=== PATIENT | male | born 1985 ===

== ENCOUNTER 2017-07-12 17:36 | Observation (INO) | payer OTHER ==
--- NOTE | 2017-07-12 18:47 | C.PDOC ---
History Of Present Illness 32yo male, presents to ED for evaluation of syncopal episodes which has been happening at time 3x per day and other times 1x per week for the past several years. PAtient states he had an episode last night and denies any changes to the presentation; patient states when the syncopal episode comes on, he becomes hot, pale, feels dizzy and lightheaded, and loses consciousness for 4-5 minutes and when he comes to, he has a headache after. Patient denies any head injury during the episodes and states they have been witnessed by his as well as his co-workers who deny any tongue bite or incontinence or seizure like activities. Patient states an episode occurred last night with similar pre- syncopal symptoms as before; patient was at [facility] getting off the bus when he felt the symptoms, sat down and "passed out" for 5 minutes and when he came to, EMS was on site. Patient was advised to come to the ER for evaluation if such symptom happened again. Patient reports today at work, he had another episode which prompted his visit. He offers no other medical complaints. Time Seen by Provider: 07/12/17 18:35 Chief Complaint (Nursing): Syncope History Per: Patient History/Exam Limitations: no limitations Onset/Duration Of Symptoms: Intermittent Episodes, Persistent Current Symptoms Are (Timing): Still Present Associated Symptoms Preceding Syncopal Episode: Lightheadedness Seizure Or Post-ictal Symptoms: None Fall Associated With With Symptoms: No Additional History Per: Patient Past Medical History Reviewed: Historical Data, Nursing Documentation, Vital Signs Vital Signs: Last Vital Signs Temp 98.2 F 07/13/17 00:39 Pulse 87 07/13/17 00:39 Resp 16 07/13/17 00:39 BP 119/71 07/13/17 00:39 Pulse Ox 96 07/13/17 00:39 - Medical History PMH: No Chronic Diseases Surgical History: No Surg Hx Family History: States: No Known Family Hx - Social History Hx Tobacco Use: Yes Hx Alcohol Use: Yes Hx Substance Use: No - Immunization History Hx Tetanus Toxoid Vaccination: No Hx Influenza Vaccination: No Hx Pneumococcal Vaccination: No Review Of Systems Except As Marked, All Systems Reviewed And Found Negative. Constitutional: Positive for: Sweats. Negative for: Fever, Chills Cardiovascular: Positive for: Light Headedness Neurological: Positive for: Headache, Dizziness, Other (syncopal episodes). Negative for: Seizures Physical Exam - Physical Exam Appears: Non-toxic, No Acute Distress Skin: Normal Color, Warm, Dry Head: Atraumatic, Normacephalic Eye(s): bilateral: Normal Inspection, PERRL, EOMI Ear(s): Bilateral: Normal Nose: Normal Oral Mucosa: Moist Neck: Normal ROM, Supple Chest: Symmetrical Cardiovascular: Rhythm Regular Respiratory: Normal Breath Sounds, No Wheezing Gastrointestinal/Abdominal: Normal Exam, Soft, No Tenderness Back: Normal Inspection Extremity: Normal ROM, No Pedal Edema, No Deformity, No Swelling Neurological/Psych: Oriented x3, Normal Speech, Normal Cognition, Normal Motor, Normal Sensation ED Course And Treatment - Laboratory Results Result Diagrams: 07/12/17 20:27 07/12/17 20:27 Lab Interpretation: No Acute Changes ECG: Interpreted By Me ECG Rhythm: Sinus Rhythm ECG Interpretation: No Acute Changes O2 Sat by Pulse Oximetry: 97 (RA) Pulse Ox Interpretation: Normal - CT Scan/US CT Head Other Rad Studies (CT/US): Read By Radiologist, Radiology Report Reviewed CT/US Interpretation: Impression: Striated bandlike hyperdensity in the cerebellar vermis, completely symmetric, the appearance fo which favors early faint calcification over hemorrhage, a finding that is associated with lead toxicity. - Physician Consult Information Time Consulting Physician Contacted: 01:05 Physician Contacted: Maikol Bentley Outcome Of Conversation: Suggest patient be admitted for syncope evaluation and monitoring. Medical Decision Making Medical Decision Making: Plan: -- CMP -- CBC -- CT Head w/o contrast Disposition - Disposition Disposition: HOSPITALIZED Disposition Time: 01:05 Condition: STABLE - POA Present On Arrival: None - Clinical Impression Clinical Impression: Syncope - Scribe Statement The provider has reviewed the documentation as recorded by the Scribe (Danitza Thakur) Provider Attestation: All medical record entries made by the Scribe were at my direction and personally dictated by me. I have reviewed the chart and agree that the record accurately reflects my personal performance of the history, physical exam, medical decision making, and the department course for this patient. I have also personally directed, reviewed, and agree with the discharge instructions and disposition.
[2017-07-12 20:31] LABS: BASO # 0.1 K/uL (0.0-0.2); BASO % 0.6 % (0.0-2.0); EOS # 0.1 K/uL (0.0-0.7); EOS % 0.6 % (0.0-4.0); HEMOGLOBIN 15.5 g/dL (12.0-18.0); LYMPH % 21.6 % (20.0-40.0); MEAN CELL VOLUME 93.8 fL (80.0-94.0); MEAN CORPUSCULAR HEMOGLOBIN 32.1 pg (27.0-31.0); MEAN CORPUSCULAR HGB CONC 34.2 g/dL (33.0-37.0); MONO # 0.8 K/uL (0.0-0.8); MONO % 5.7 % (0.0-10.0); NEUT # 9.9 K/uL (1.8-7.0); NEUT % 71.5 % (50.0-75.0); RBC 4.83 Mil/uL (4.40-5.90); RED CELL DISTRIBUTION WIDTH 13.4 % (11.5-14.5); WHITE BLOOD COUNT 13.8 K/uL (4.8-10.8)
[2017-07-12 20:43] LABS: ALB/GLOB RATIO 1.3 (1.0-2.1); ALBUMIN 4.4 g/dL (3.5-5.0); ALT/SGPT 36 U/L (21-72); AST/SGOT 27 U/L (17-59); BLOOD UREA NITROGEN 12 mg/dL (9-20); GFR AFRICAN-AMERICAN > 60; GFR NON-AFRICAN AMERICAN > 60
[2017-07-12 20:47] LABS: URINE BILIRUBIN NEGATIVE (NEGATIVE); URINE BLOOD NEGATIVE (NEGATIVE); URINE CLARITY Clear (Clear); URINE COLOR Yellow (YELLOW); URINE GLUCOSE (UA) NORMAL (Normal); URINE LEUKOCYTE ESTERASE NEG Leu/uL (Negative); URINE PROTEIN NEGATIVE (NEGATIVE)
[2017-07-12 21:13] LABS: BARBITURATES, UR NEGATIVE (NEGATIVE); BENZODIAZEPINES, UR NEGATIVE (NEGATIVE); OPIATES, UR NEGATIVE (NEGATIVE); PHENCYCLIDINE, UR NEGATIVE (NEGATIVE)
[2017-07-13] MEDS ORDERED: Potassium Chloride 20 mEq ER Tab PO ONE (03:04)
--- NOTE | 2017-07-13 03:09 | CP.PCM.HP ---
<Liliana Carrington - Last Filed: 07/13/17 06:09> History of Present Illness - History of Present Illness History of Present Illness: 32 year old male with no reported past medical history presents to the ED after having multiple syncope episodes. Patient had a syncope episode last night while resting at home. Seconds prior to lose consciousness, patient experienced dizziness, cold sweats, chill and blurred vision. Patient was told that he was unconscious for about 5 minutes. There were no seizure like movement , urinary or fecal incontinence, however patient does complaint of a headache after regained consciousness. Patient had another syncope episode this morning while waiting at a bus stop in [facility]. EMS arrived and evaluated the patient then recommended him to go to the ED which he declined at the time because he needs to go to work. Patient reports he first experience these episodes when he was a teenager, but was never evaluated by anyone. Patient denies having fever, shortness of breath, chest pain, nausea, vomiting, diarrhea , or urinary symptoms. PMD: none PMHx: denies PSHx: denies Allergy: NKDA Social Hx: Smokes 1 pack of cigarettes daily, 1 joint of marijuana daily, and social alcohol consumption Family Hx: maternal aunt with brain tumor, sister with lupus Home meds: none Present on Admission - Present on Admission Any Indicators Present on Admission: No Review of Systems - Constitutional Constitutional: As Per HPI, Chills, Headache. absent: Anorexia, Fever - EENT Eyes: As Per HPI, Blurred Vision. absent: Blind Spots, Decreased Night Vision, Discharge Ears: As Per HPI. absent: Decreased Hearing, Disequilibrium Nose/Mouth/Throat: As Per HPI. absent: Epistaxis, Nasal Congestion, Nasal Obstruction - Cardiovascular Cardiovascular: As Per HPI. absent: Chest Pain, Chest Pain with Activity, Leg Edema - Respiratory Respiratory: As Per HPI. absent: Cough, Dyspnea, Wheezing - Gastrointestinal Gastrointestinal: As Per HPI. absent: Abdominal Pain, Diarrhea, Nausea, Vomiting - Genitourinary Genitourinary: As Per HPI. absent: Dysuria, Urinary Incontinence - Reproductive: Male Reproductive:Male: As Per HPI - Musculoskeletal Musculoskeletal: As Per HPI. absent: Atrophy, Back Pain, Deformity - Integumentary Integumentary: As Per HPI. absent: Acne - Neurological Neurological: As Per HPI, Headaches, Syncope. absent: Tremor - Psychiatric Psychiatric: As Per HPI. absent: Anxiety, Depression - Endocrine Endocrine: As Per HPI. absent: Change in Body Appearance - Hematologic/Lymphatic Hematologic: As Per HPI Past Patient History - Past Social History Smoking Status: Light Smoker < 10 Cigarettes Daily - PSYCHIATRIC Hx Substance Use: No - SURGICAL HISTORY Hx Surgeries: No - ANESTHESIA Hx Anesthesia: No Meds Allergies/Adverse Reactions: Allergies Allergy/AdvReac Type Severity Reaction Status Date / Time No Known Allergies Allergy Verified 07/12/17 18:07 Physical Exam - Constitutional Appears: Well, Non-toxic, No Acute Distress - Head Exam Head Exam: ATRAUMATIC, NORMOCEPHALIC - Eye Exam Eye Exam: EOMI, Normal appearance Pupil Exam: PERRL - ENT Exam ENT Exam: Mucous Membranes Moist - Neck Exam Neck exam: Positive for: Normal Inspection - Respiratory Exam Respiratory Exam: Clear to Auscultation Bilateral, NORMAL BREATHING PATTERN. absent: Wheezes, Respiratory Distress - Cardiovascular Exam Cardiovascular Exam: REGULAR RHYTHM, +S1, +S2. absent: Diastolic murmur, Systolic Murmur - GI/Abdominal Exam GI & Abdominal Exam: Normal Bowel Sounds, Soft. absent: Tenderness - Extremities Exam Extremities exam: Positive for: normal inspection. Negative for: tenderness - Neurological Exam Neurological exam: Alert, Oriented x3 - Psychiatric Exam Psychiatric exam: Normal Affect, Normal Mood - Skin Skin Exam: Normal Color, Warm Results - Vital Signs Recent Vital Signs: Last Vital Signs Temp 97.9 F 07/13/17 02:28 Pulse 89 07/13/17 02:28 Resp 16 07/13/17 02:28 BP 130/74 07/13/17 02:28 Pulse Ox 99 07/13/17 02:28 - Labs Result Diagrams: 07/12/17 20:27 07/12/17 20:27 Labs: Laboratory Results - last 24 hr 07/12/17 07/12/17 07/12/17 18:11 20:27 20:27 WBC 13.8 H RBC 4.83 Hgb 15.5 Hct 45.3 MCV 93.8 MCH 32.1 H MCHC 34.2 RDW 13.4 Plt Count 350 MPV 9.0 Neut % (Auto) 71.5 Lymph % (Auto) 21.6 [place] % (Auto) 5.7 Eos % (Auto) 0.6 Baso % (Auto) 0.6 Neut # (Auto) 9.9 H Lymph # (Auto) 3.0 [place] # (Auto) 0.8 Eos # (Auto) 0.1 Baso # (Auto) 0.1 Sodium 144 Potassium 3.5 L Chloride 102 Carbon Dioxide 24 Anion Gap 22 H BUN 12 Creatinine 0.9 Est GFR ( Amer) > 60 Est GFR (Non-Af Amer) > 60 POC Glucose (mg/dL) 97 Random Glucose 95 Calcium 9.0 Total Bilirubin 0.5 AST 27 ALT 36 Alkaline Phosphatase 60 Total Protein 7.7 Albumin 4.4 Globulin 3.3 Albumin/Globulin Ratio 1.3 Urine Color Urine Clarity Urine pH Ur Specific [place] Urine Protein Urine Glucose (UA) Urine Ketones Urine Blood Urine Nitrate Urine Bilirubin Urine Urobilinogen Ur Leukocyte Esterase Urine WBC (Auto) Urine RBC (Auto) Urine Opiates Screen Urine Methadone Screen Ur Barbiturates Screen Ur Phencyclidine Scrn Ur Amphetamines Screen U Benzodiazepines Scrn U Oth Cocaine Metabols U Cannabinoids Screen 07/12/17 07/12/17 20:38 20:38 WBC RBC Hgb Hct MCV MCH MCHC RDW Plt Count MPV Neut % (Auto) Lymph % (Auto) [place] % (Auto) Eos % (Auto) Baso % (Auto) Neut # (Auto) Lymph # (Auto) [place] # (Auto) Eos # (Auto) Baso # (Auto) Sodium Potassium Chloride Carbon Dioxide Anion Gap BUN Creatinine Est GFR ( Amer) Est GFR (Non-Af Amer) POC Glucose (mg/dL) Random Glucose Calcium Total Bilirubin AST ALT Alkaline Phosphatase Total Protein Albumin Globulin Albumin/Globulin Ratio Urine Color Yellow Urine Clarity Clear Urine pH 5.0 Ur Specific [place] 1.020 Urine Protein Negative Urine Glucose (UA) Normal Urine Ketones Negative Urine Blood Negative Urine Nitrate Negative Urine Bilirubin Negative Urine Urobilinogen 2.0 Ur Leukocyte Esterase Neg Urine WBC (Auto) < 1 Urine RBC (Auto) < 1 Urine Opiates Screen Negative Urine Methadone Screen Negative Ur Barbiturates Screen Negative Ur Phencyclidine Scrn Negative Ur Amphetamines Screen Negative U Benzodiazepines Scrn Negative U Oth Cocaine Metabols Negative U Cannabinoids Screen Positive H Assessment & Plan - Assessment and Plan (Free Text) Assessment: Syncope -Carotid body hypersensitivity vs seizure -Orthostatic vitals -Follow up echo, head CT and EKG -Fall precaution -Cardiology consult Electrolyte imbalance -Potassium 3.5 -Supplement as needed -Monitor AM labs Polysubstance abuse (marijuana, tobacco, alcohol) -UDS positive for cannabinoids -Nicoderm patch -Cessation was strongly advised Prophylactic measures -Protonix -Lovenox <Maikol Bentley P - Last Filed: 07/13/17 07:47> Results - Vital Signs Recent Vital Signs: Last Vital Signs Temp 98.3 F 07/13/17 02:55 Pulse 101 H 07/13/17 02:55 Resp 20 07/13/17 02:55 BP 126/82 07/13/17 02:55 Pulse Ox 98 07/13/17 02:55 - Labs Result Diagrams: 07/12/17 20:27 07/12/17 20:27 Labs: Laboratory Results - last 24 hr 07/12/17 07/12/17 07/12/17 18:11 20:27 20:27 WBC 13.8 H RBC 4.83 Hgb 15.5 Hct 45.3 MCV 93.8 MCH 32.1 H MCHC 34.2 RDW 13.4 Plt Count 350 MPV 9.0 Neut % (Auto) 71.5 Lymph % (Auto) 21.6 [place] % (Auto) 5.7 Eos % (Auto) 0.6 Baso % (Auto) 0.6 Neut # (Auto) 9.9 H Lymph # (Auto) 3.0 [place] # (Auto) 0.8 Eos # (Auto) 0.1 Baso # (Auto) 0.1 Sodium 144 Potassium 3.5 L Chloride 102 Carbon Dioxide 24 Anion Gap 22 H BUN 12 Creatinine 0.9 Est GFR ( Amer) > 60 Est GFR (Non-Af Amer) > 60 POC Glucose (mg/dL) 97 Random Glucose 95 Calcium 9.0 Total Bilirubin 0.5 AST 27 ALT 36 Alkaline Phosphatase 60 Total Protein 7.7 Albumin 4.4 Globulin 3.3 Albumin/Globulin Ratio 1.3 Urine Color Urine Clarity Urine pH Ur Specific [place] Urine Protein Urine Glucose (UA) Urine Ketones Urine Blood Urine Nitrate Urine Bilirubin Urine Urobilinogen Ur Leukocyte Esterase Urine WBC (Auto) Urine RBC (Auto) Urine Opiates Screen Urine Methadone Screen Ur Barbiturates Screen Ur Phencyclidine Scrn Ur Amphetamines Screen U Benzodiazepines Scrn U Oth Cocaine Metabols U Cannabinoids Screen 07/12/17 07/12/17 20:38 20:38 WBC RBC Hgb Hct MCV MCH MCHC RDW Plt Count MPV Neut % (Auto) Lymph % (Auto) [place] % (Auto) Eos % (Auto) Baso % (Auto) Neut # (Auto) Lymph # (Auto) [place] # (Auto) Eos # (Auto) Baso # (Auto) Sodium Potassium Chloride Carbon Dioxide Anion Gap BUN Creatinine Est GFR ( Amer) Est GFR (Non-Af Amer) POC Glucose (mg/dL) Random Glucose Calcium Total Bilirubin AST ALT Alkaline Phosphatase Total Protein Albumin Globulin Albumin/Globulin Ratio Urine Color Yellow Urine Clarity Clear Urine pH 5.0 Ur Specific [place] 1.020 Urine Protein Negative Urine Glucose (UA) Normal Urine Ketones Negative Urine Blood Negative Urine Nitrate Negative Urine Bilirubin Negative Urine Urobilinogen 2.0 Ur Leukocyte Esterase Neg Urine WBC (Auto) < 1 Urine RBC (Auto) < 1 Urine Opiates Screen Negative Urine Methadone Screen Negative Ur Barbiturates Screen Negative Ur Phencyclidine Scrn Negative Ur Amphetamines Screen Negative U Benzodiazepines Scrn Negative U Oth Cocaine Metabols Negative U Cannabinoids Screen Positive H Attending/Attestation - Attestation I have personally seen and examined this patient.: Yes I have fully participated in the care of the patient.: Yes I have reviewed all pertinent clinical information: Yes Notes (Text): Clinically cardiogenic syncope, most likely bradycardia patient starts to feel before the event and sits down most of the time to prevent fall, hence no injuries. Plan Echo Tele monitor Cardiology consult May need tilt table test, holter monitor in case tele monitor doesn't show the rhythm changes Avoid joann blocking agents Tobacco and marijuana abuse, he was counselled GI/DVT prophylaxis.
[2017-07-13] MEDS ORDERED: Pneumococcal 23-Valent Vaccine IM ONE (03:45)
[2017-07-13 07:42] LABS: BASO # 0.1 K/uL (0.0-0.2); BASO % 0.7 % (0.0-2.0); EOS # 0.1 K/uL (0.0-0.7); EOS % 0.7 % (0.0-4.0); HEMOGLOBIN 15.3 g/dL (12.0-18.0); LYMPH # 2.3 K/uL (1.0-4.3); LYMPH % 14.6 % (20.0-40.0); MEAN CELL VOLUME 93.6 fL (80.0-94.0); MEAN CORPUSCULAR HEMOGLOBIN 32.6 pg (27.0-31.0); MEAN CORPUSCULAR HGB CONC 34.8 g/dL (33.0-37.0); MEAN PLATELET VOLUME 8.6 fL (7.2-11.7); MONO # 0.8 K/uL (0.0-0.8); NEUT # 12.2 K/uL (1.8-7.0); RBC 4.7 Mil/uL (4.40-5.90); RED CELL DISTRIBUTION WIDTH 13.1 % (11.5-14.5); WHITE BLOOD COUNT 15.5 K/uL (4.8-10.8)
[2017-07-13 08:02] LABS: ALB/GLOB RATIO 1.2 (1.0-2.1); ALBUMIN 3.8 g/dL (3.5-5.0); ALT/SGPT 30 U/L (21-72); AST/SGOT 25 U/L (17-59); BLOOD UREA NITROGEN 10 mg/dL (9-20); CALCIUM 8.8 mg/dl (8.6-10.4); GFR AFRICAN-AMERICAN > 60; GFR NON-AFRICAN AMERICAN > 60
--- NOTE | 2017-07-13 08:14 | CT ---
PROCEDURE: CT HEAD WITHOUT CONTRAST. HISTORY: syncope COMPARISON: None available. TECHNIQUE: Axial computed tomography images were obtained through the head/brain without intravenous contrast. Radiation dose: Total exam DLP = 771 mGy-cm. This CT exam was performed using one or more of the following dose reduction techniques: Automated exposure control, adjustment of the mA and/or kV according to patient size, and/or use of iterative reconstruction technique. FINDINGS: HEMORRHAGE: Symmetric band like areas of faint increased density along the cerebellar vermis. Although the hyperattenuation raises the possibility of hemorrhage, it is completely symmetric which in combination with the striated bandlike pattern which would be atypical for acute hemorrhage. The appearance is more suggestive of early faint calcification. The location within the vermis is a finding that may be associated with lead toxicity. Clinical correlation. BRAIN: See above. VENTRICLES: Unremarkable. No hydrocephalus. CALVARIUM: Unremarkable. PARANASAL SINUSES: Unremarkable as visualized. No significant inflammatory changes. MASTOID AIR CELLS: Unremarkable as visualized. No inflammatory changes. OTHER FINDINGS: None. IMPRESSION: Symmetric band like areas of faint increased density along the cerebellar vermis. Although the hyperattenuation raises the possibility of hemorrhage, it is completely symmetric which in combination with the striated bandlike pattern which would be atypical for acute hemorrhage. The appearance is more suggestive of early faint calcification. The location within the vermis is a finding that may be associated with lead toxicity. Clinical correlation. These findings were preliminarily reported at 12:30 a.m. on 07/13/[address] Adelita Lancaster from [email or web address].
[2017-07-13] MEDS ORDERED: Enoxaparin 40 mg Syringe SC SCH (10:00)
[2017-07-13] MEDS ORDERED: Pantoprazole 40 mg EC Tab PO SCH (10:00)
--- NOTE | 2017-07-13 10:05 | CP.PCM.PN ---
<Luis Malcolm - Last Filed: 07/13/17 17:12> Subjective - Date & Time of Evaluation Date of Evaluation: 07/13/17 Time of Evaluation: 10:01 - Subjective Subjective: Patient seen and examined at bedside He has no complaints at this time. States he has multiple bumps on his back that have been slowly enlarging since childhood. Only cause him pain when he bumps them. States he has been smoking marijuana daily since he was 13 years old Does not tolerate nicotine patch Objective - Vital Signs/Intake and Output Vital Signs (last 24 hours): Temp Pulse Resp BP Pulse Ox 98.2 F 75 20 117/76 97 07/13/17 08:02 07/13/17 08:02 07/13/17 08:02 07/13/17 08:02 07/13/17 08:02 Intake and Output: 07/13/17 07/13/17 06:59 18:59 Intake Total 10 Balance 10 - Medications Medications: Current Medications Nicotine (Nicoderm Cq) 1 patch TD DAILY JACE - Labs Labs: 07/13/17 07:35 07/13/17 07:35 - Constitutional Appears: Well, Non-toxic, No Acute Distress - Head Exam Head Exam: ATRAUMATIC, NORMAL INSPECTION, NORMOCEPHALIC - Eye Exam Eye Exam: EOMI, Normal appearance, PERRL. absent: Conjunctival injection, Nystagmus, Periorbital swelling, Periorbital tenderness, Scleral icterus Pupil Exam: NORMAL ACCOMODATION, PERRL. absent: Fixed, Irregular, Miosis, Mydriatic, Unequal - ENT Exam ENT Exam: Mucous Membranes Moist, Normal Exam. absent: Mucous Membranes Dry - Neck Exam Neck Exam: Full ROM, Normal Inspection. absent: Lymphadenopathy, Meningismus, Tenderness, Thyromegaly - Respiratory Exam Respiratory Exam: Clear to Ausculation Bilateral, NORMAL BREATHING PATTERN. absent: Accessory Muscle Use, Chest Wall Tenderness, Decreased Breath Sounds, Prolonged Expiratory Phase, Rales, Rhonchi, Wheezes, Respiratory Distress, Stridor - Cardiovascular Exam Cardiovascular Exam: REGULAR RHYTHM, +S1, +S2. absent: Bradycardia, Tachycardia Additional comments: every 4th beat auscultated extra beat - GI/Abdominal Exam GI & Abdominal Exam: Soft, Normal Bowel Sounds. absent: Bruit, Distended, Firm , Guarding, Rigid, Tenderness, Mass, Organomegaly, Pulsatile Mass, Rebound - Extremities Exam Extremities Exam: absent: Joint Swelling, Tenderness - Back Exam Back Exam: absent: CVA tenderness (L), CVA tenderness (R), Full ROM, rash noted , tenderness Additional comments: patient has multiple round mobile masses mostly like representing lipoma, Non tender. No evidence of overlying cellulitis - Neurological Exam Neurological Exam: Alert, Awake, CN II-XII Intact, Normal Gait, Oriented x3, Reflexes Normal Neuro motor strength exam: Left Upper Extremity: 5, Right Upper Extremity: 5, Left Lower Extremity: 5, Right Lower Extremity: 5 - Psychiatric Exam Psychiatric exam: Normal Affect, Normal Mood - Skin Skin Exam: Dry, Intact, Normal Color, Warm Assessment and Plan (1) Syncope Assessment & Plan: Neuro (Valentino) - follow up reccs Cards ([facility]) - Tilt table, lexiscan and loop recorder on monday Echo: Normal EF, No valvular abnormalities Carotid Doppler: No significant stenosis RPR cortisol AM trops folate B12 MRI Status: Acute (2) Marijuana abuse Assessment & Plan: counselled on smoking cessation Status: Acute (3) Obesity (BMI 30.0-34.9) Assessment & Plan: lipid panel A1C Rate Clerk referral HHD Status: Acute (4) Tobacco abuse Assessment & Plan: Smoking cessation counselling Status: Acute (5) Prophylactic measure Assessment & Plan: scd VTE not indicated GI ppx not indicated Status: Acute <Bobby Dunne - Last Filed: 07/13/17 19:39> Objective - Vital Signs/Intake and Output Vital Signs (last 24 hours): Temp Pulse Resp BP Pulse Ox 98.1 F 75 18 117/71 97 07/13/17 16:00 07/13/17 16:05 07/13/17 16:00 07/13/17 16:00 07/13/17 16:05 - Medications Medications: Current Medications Nicotine (Nicoderm Cq) 1 patch TD DAILY JACE Last Admin: 07/13/17 10:26 Dose: Not Given - Labs Labs: 07/13/17 07:35 07/13/17 07:35 Attending/Attestation - Attestation I have personally seen and examined this patient.: Yes I have fully participated in the care of the patient.: Yes I have reviewed all pertinent clinical information, including history, physical exam and plan: Yes Notes (Text): 07/13/17 19:39 Patient was seen and examined together with Resident Dr. Luis Cox. Exam, assessment and plan were gone over with the resident. Bobby Dunne D.O.
--- NOTE | 2017-07-13 12:49 | CARD ---
APPROVED REPORT EKG Measurement Heart [id number] VT [id number] [id number] <Conclusion> Normal sinus rhythm Normal ECG
--- NOTE | 2017-07-13 14:01 | RAD ---
Chest x-ray single frontal view History: Syncope. Comparison: 07/13/2017 Findings Mild venous congestion. Bilateral hilar prominence. Heart size within normal limits. Impression: Mild venous congestion.
--- NOTE | 2017-07-13 14:59 | VASCLAB ---
PROCEDURE: HISTORY: syncope COMPARISON: None available. TECHNIQUE: Grayscale and duplex Doppler evaluation of the cervical carotid and vertebral arteries were performed. The common carotid, carotid bifurcations and cervical Internal Carotid Artery (ICA) and proximal External Carotid Artery (ECA) were evaluated. The vertebral arteries were evaluated for gross patency and flow direction. Report prepared by Jw Gutierrez, BS, RVT FINDINGS: RIGHT CAROTID ARTERIES: 1. Common Carotid Artery: No significant focal plaque formation of the right common carotid artery. Maximum Peak Systolic velocity: 93 cm/sec: End-diastolic velocity 25 cm/sec. 2. Carotid Bifurcation: plaque formation. Maximum Peak Systolic velocity: 82 cm/sec: End-diastolic velocity 24 cm/sec. 3. Internal Carotid Artery: Plaque description: 3.1. Proximal Segment: Peak systolic velocity 61 cm/sec: End-diastolic velocity 26 cm/sec - % stenosis 0-15% 3.2. Middle Segment: Peak systolic velocity 56 cm/sec: End-diastolic velocity 29 cm/sec - % stenosis 0-15% 3.3. Distal Segment: Peak systolic velocity 56 cm/sec: End-diastolic velocity 26 cm/sec - % stenosis 0-15% 4. External Carotid Artery: No significant focal plaque formation. Peak systolic velocity 88 cm/sec 5. ICA/CCA Ratio: 0.9 LEFT CAROTID ARTERIES: 1. Common Carotid Artery: No significant focal plaque formation of the left common carotid artery. Maximum Peak Systolic velocity: 85 cm/sec: End-diastolic velocity 21 cm/sec. 2. Carotid Bifurcation: plaque formation. Maximum Peak Systolic velocity: 76 cm/sec: End-diastolic velocity 19 cm/sec. 3. Internal Carotid Artery: Plaque description: 3.1. Proximal Segment: Peak systolic velocity 52 cm/sec: End-diastolic velocity 23 cm/sec - % stenosis 0-15% 3.2. Middle Segment: Peak systolic velocity 64 cm/sec: End-diastolic velocity 21 cm/sec - % stenosis 0-15% 3.3. Distal Segment: Peak systolic velocity 43 cm/sec: End-diastolic velocity 21 cm/sec - % stenosis 0-15% 4. External Carotid Artery: No significant focal plaque formation. Peak systolic velocity 100 cm/sec 5. ICA/CCA Ratio: 0.9 VERTEBRAL ARTERIES: 1. Right Vertebral Artery: The right vertebral artery flow direction is antegrade. 2. Left Vertebral Artery: The left vertebral artery flow direction is antegrade. OTHER FINDINGS: 1. Right Brachial Blood pressure: 126 mmHg. 2. Left Brachial Blood pressure: 118 mmHg. IMPRESSION: RIGHT: Duplex scan does not suggest hemodynamically significant stenosis of the right extracranial carotid arteries. LEFT: Duplex scan does not suggest hemodynamically significant stenosis of the left extracranial carotid arteries.
--- NOTE | 2017-07-13 15:10 | CARD ---
APPROVED REPORT EXAM: Two-dimensional and M-mode echocardiogram with Doppler and color Doppler. Other Information Quality : GoodRhythm : INDICATION Syncope 2D DIMENSIONS IVSd0.8 (0.7-1.1cm)LVDd5.7 (3.9-5.9cm) PWd0.8 (0.7-1.1cm)LVDs3.7 (2.5-4.0cm) FS (%) 35.5 %LVEF (%)64.3 (>50%) M-Mode DIMENSIONS Left Atrium (MM)3.12 (2.5-4.0cm)Aortic Root3.67 (2.2-3.7cm) Aortic Cusp Exc.2.14 (1.5-2.0cm) Mitral Valve MV E Awxmbixg19.4cm/sMV A Ydgccyed99.4cm/sE/A ratio1.8 TDI E/Lateral E'0.0E/Medial E'0.0 <Conclusion> normal size la,lv & ra rv. normal lv wall motion,thickness,systolic & diastolic function with lvef of 55-60%. normal aortic,mitral,tv & pv. mild pi. no pericardial effusion. normal size aortic root.
--- NOTE | 2017-07-13 23:17 | CP.PCM.CON ---
History of Present Illness - History of Present Illness History of Present Illness: 32 yr old right handed male, with no pmh presents with multiple spells of syncope, resting at home, and preceded by dizziness, diaphoresis, followed by loc. as per chart: Patient had another syncope episode this morning while waiting at a bus stop in [facility]. EMS arrived and evaluated the patient then recommended him to go to the ED which he declined at the time because he needs to go to work. Denies chest pain, headache, weakness or aphasia. PMD: none PMHx: denies PSHx: denies Allergy: NKDA Social Hx: Smokes 1 pack of cigarettes daily, 1 joint of marijuana daily, and social alcohol consumption Family Hx: maternal aunt with brain tumor, sister with lupus Home meds: none Past Patient History - Past Social History Smoking Status: Light Smoker < 10 Cigarettes Daily - PSYCHIATRIC Hx Substance Use: No - SURGICAL HISTORY Hx Surgeries: No - ANESTHESIA Hx Anesthesia: No Meds Allergies/Adverse Reactions: Allergies Allergy/AdvReac Type Severity Reaction Status Date / Time No Known Allergies Allergy Verified 07/12/17 18:07 - Medications Medications: Current Medications Nicotine (Nicoderm Cq) 1 patch TD DAILY JACE Last Admin: 07/13/17 10:26 Dose: Not Given Results - Vital Signs Recent Vital Signs: Last Vital Signs Temp 98.1 F 07/13/17 16:00 Pulse 75 07/13/17 16:05 Resp 18 07/13/17 16:00 BP 117/71 07/13/17 16:00 Pulse Ox 97 07/13/17 20:41 - Labs Result Diagrams: 07/13/17 07:35 07/13/17 07:35 Labs: Laboratory Results - last 24 hr 07/13/17 07/13/17 07/13/17 07:35 07:35 11:41 WBC 15.5 H RBC 4.70 Hgb 15.3 Hct 44.0 MCV 93.6 MCH 32.6 H MCHC 34.8 RDW 13.1 Plt Count 298 MPV 8.6 Neut % (Auto) 79.0 H Lymph % (Auto) 14.6 L Howard % (Auto) 5.0 Eos % (Auto) 0.7 Baso % (Auto) 0.7 Neut # (Auto) 12.2 H Lymph # (Auto) 2.3 Howard # (Auto) 0.8 Eos # (Auto) 0.1 Baso # (Auto) 0.1 Sodium 141 Potassium 3.9 Chloride 103 Carbon Dioxide 25 Anion Gap 16 BUN 10 Creatinine 0.8 Est GFR ( Amer) > 60 Est GFR (Non-Af Amer) > 60 Random Glucose 95 Calcium 8.8 Phosphorus 3.2 Magnesium 2.1 Total Bilirubin 0.9 AST 25 ALT 30 Alkaline Phosphatase 61 Troponin I < 0.0120 Total Protein 7.0 Albumin 3.8 Globulin 3.3 Albumin/Globulin Ratio 1.2 Free T4 TSH 3rd Generation 1.08 Alcohol, Quantitative < 10 RPR 07/13/17 07/13/17 07/13/17 11:41 11:41 16:42 WBC RBC Hgb Hct MCV MCH MCHC RDW Plt Count MPV Neut % (Auto) Lymph % (Auto) Howard % (Auto) Eos % (Auto) Baso % (Auto) Neut # (Auto) Lymph # (Auto) Howard # (Auto) Eos # (Auto) Baso # (Auto) Sodium Potassium Chloride Carbon Dioxide Anion Gap BUN Creatinine Est GFR ( Amer) Est GFR (Non-Af Amer) Random Glucose Calcium Phosphorus Magnesium Total Bilirubin AST ALT Alkaline Phosphatase Troponin I < 0.0120 Total Protein Albumin Globulin Albumin/Globulin Ratio Free T4 1.03 TSH 3rd Generation Alcohol, Quantitative RPR Nonreactive 07/13/17 21:56 WBC RBC Hgb Hct MCV MCH MCHC RDW Plt Count MPV Neut % (Auto) Lymph % (Auto) Howard % (Auto) Eos % (Auto) Baso % (Auto) Neut # (Auto) Lymph # (Auto) Howard # (Auto) Eos # (Auto) Baso # (Auto) Sodium Potassium Chloride Carbon Dioxide Anion Gap BUN Creatinine Est GFR ( Amer) Est GFR (Non-Af Amer) Random Glucose Calcium Phosphorus Magnesium Total Bilirubin AST ALT Alkaline Phosphatase Troponin I < 0.0120 Total Protein Albumin Globulin Albumin/Globulin Ratio Free T4 TSH 3rd Generation Alcohol, Quantitative RPR Assessment & Plan - Assessment and Plan (Free Text) Assessment: 32 yr old male with syncopal spells that are most likely cardiogenic in nature , with normal neurological exam. PLan; 1. MRI brain 2. If normal, would continue with holter monitor 3. Monitor blood pressure fluctuations. 4. Telemetry.
[2017-07-14 00:20] VITALS: RESP 20; TEMP 97.8
[2017-07-14 03:39] VITALS: PULSE 64
--- NOTE | 2017-07-14 07:01 | CP.PCM.PN ---
Subjective - Date & Time of Evaluation Date of Evaluation: 07/14/17 Time of Evaluation: 06:58 - Subjective Subjective: Patient seen and examined at bedside. No complainants at this time no episodes of dizziness, weakness, chest pain or palpitations. No blurry vision Tolerating diet. Informed patient of plan for tilt table, loop recorder and lexiscan. Patient agrees with plan. Objective - Vital Signs/Intake and Output Vital Signs (last 24 hours): Temp Pulse Resp BP Pulse Ox 97.8 F 64 20 95/54 L 98 07/13/17 23:10 07/13/17 23:30 07/13/17 23:10 07/14/17 04:00 07/13/17 23:10 - Medications Medications: Current Medications Nicotine (Nicoderm Cq) 1 patch TD DAILY JACE Last Admin: 07/13/17 10:26 Dose: Not Given - Labs Labs: 07/13/17 07:35 07/13/17 07:35 - Constitutional Appears: Well - Neck Exam Neck Exam: Lymphadenopathy - Cardiovascular Exam Cardiovascular Exam: Murmur - Additional Findings Additional findings: - Constitutional Appears: Well, Non-toxic, No Acute Distress - Head Exam Head Exam: ATRAUMATIC, NORMAL INSPECTION, NORMOCEPHALIC - Eye Exam Eye Exam: EOMI, Normal appearance, PERRL. absent: Conjunctival injection, Nystagmus, Periorbital swelling, Periorbital tenderness, Scleral icterus Pupil Exam: NORMAL ACCOMODATION, PERRL. absent: Fixed, Irregular, Miosis, Mydriatic, Unequal - ENT Exam ENT Exam: Mucous Membranes Moist, Normal Exam. absent: Mucous Membranes Dry - Neck Exam Neck Exam: Full ROM, Normal Inspection. absent: Lymphadenopathy, Meningismus, Tenderness, Thyromegaly - Respiratory Exam Respiratory Exam: Clear to Ausculation Bilateral, NORMAL BREATHING PATTERN. absent: Accessory Muscle Use, Chest Wall Tenderness, Decreased Breath Sounds, Prolonged Expiratory Phase, Rales, Rhonchi, Wheezes, Respiratory Distress, Stridor - Cardiovascular Exam Cardiovascular Exam: REGULAR RHYTHM, +S1, +S2. absent: Bradycardia, Tachycardia Additional comments: every 4th beat auscultated extra beat - GI/Abdominal Exam GI & Abdominal Exam: Soft, Normal Bowel Sounds. absent: Bruit, Distended, Firm , Guarding, Rigid, Tenderness, Mass, Organomegaly, Pulsatile Mass, Rebound - Extremities Exam Extremities Exam: absent: Joint Swelling, Tenderness - Back Exam Back Exam: absent: CVA tenderness (L), CVA tenderness (R), Full ROM, rash noted , tenderness Additional comments: patient has multiple round mobile masses mostly like representing lipoma, Non tender. No evidence of overlying cellulitis - Neurological Exam Neurological Exam: Alert, Awake, CN II-XII Intact, Normal Gait, Oriented x3, Reflexes Normal Neuro motor strength exam: Left Upper Extremity: 5, Right Upper Extremity: 5, Left Lower Extremity: 5, Right Lower Extremity: 5 - Psychiatric Exam Psychiatric exam: Normal Affect, Normal Mood - Skin Skin Exam: Dry, Intact, Normal Color, Warm Assessment and Plan (1) Syncope Assessment & Plan: Neuro (Valentino) - follow up reccs Cards ([facility]) - Tilt table, lexiscan and loop recorder on monday Echo: Normal EF, No valvular abnormalities Carotid Doppler: No significant stenosis RPR - nonreactive Trops negative x3 cortisol AM folate B12 MRI Status: Acute (2) Marijuana abuse Assessment & Plan: counselled on smoking cessation Status: Acute (3) Obesity (BMI 30.0-34.9) Assessment & Plan: lipid panel A1C [employer] referral HHD Status: Acute (4) Tobacco abuse Assessment & Plan: Smoking cessation counselling Status: Acute (5) Prophylactic measure Assessment & Plan: scd VTE not indicated GI ppx not indicated Status: Acute
[2017-07-14 07:46] LABS: BASO # 0.1 K/uL (0.0-0.2); EOS # 0.1 K/uL (0.0-0.7); EOS % 0.9 % (0.0-4.0); HEMOGLOBIN 15.8 g/dL (12.0-18.0); LYMPH # 2.1 K/uL (1.0-4.3); LYMPH % 20.4 % (20.0-40.0); MEAN CELL VOLUME 94.8 fL (80.0-94.0); MEAN CORPUSCULAR HEMOGLOBIN 33.5 pg (27.0-31.0); MEAN CORPUSCULAR HGB CONC 35.3 g/dL (33.0-37.0); MEAN PLATELET VOLUME 8.6 fL (7.2-11.7); MONO # 0.8 K/uL (0.0-0.8); MONO % 7.9 % (0.0-10.0); NEUT # 7.3 K/uL (1.8-7.0); NEUT % 69.8 % (50.0-75.0); RBC 4.73 Mil/uL (4.40-5.90); RED CELL DISTRIBUTION WIDTH 13.3 % (11.5-14.5); WHITE BLOOD COUNT 10.5 K/uL (4.8-10.8)
--- NOTE | 2017-07-14 07:57 | CP.PCM.PN ---
Subjective - Date & Time of Evaluation Date of Evaluation: 07/14/17 Time of Evaluation: 07:55 - Subjective Subjective: Mr. Vogel was seen and examined at the bedside. He remains alert, oriented in all spheres. He denies any headache, dizziness, lightheadedness, weakness, blurred vision, or diplopia. He is able to follow all commands. He further claims that he has a history of syncopal episode at the past and able to position self safely. He denies any history of seizure or migraine. Orthostatic vital signs and echocardiogram are within his normal range.There was no untoward events overnight. Objective - Vital Signs/Intake and Output Vital Signs (last 24 hours): Temp Pulse Resp BP Pulse Ox 97.8 F 64 20 95/54 L 98 07/13/17 23:10 07/13/17 23:30 07/13/17 23:10 07/14/17 04:00 07/13/17 23:10 - Medications Medications: Current Medications Nicotine (Nicoderm Cq) 1 patch TD DAILY JACE Last Admin: 07/13/17 10:26 Dose: Not Given - Labs Labs: 07/14/17 07:39 07/13/17 07:35 - Constitutional Appears: No Acute Distress - Head Exam Head Exam: NORMAL INSPECTION - Neurological Exam Neurological Exam: Alert, Awake Neuro motor strength exam: Left Upper Extremity: 5, Right Upper Extremity: 5, Left Lower Extremity: 5, Right Lower Extremity: 5 Additional comments: He is alert, oriented, follows commands, sensation is intact. Assessment and Plan (1) Syncope Assessment & Plan: Case discussed with Dr. Valentino, continue all current medical regimen. Pending MRI, if normal recommand cardiology consult for either holter monitoring or loop recorder placement) to evaluate any cardiac origin.Recommend lifestyle modification. Status: Acute
[2017-07-14 08:30] VITALS: BP 117/73; O2SAT 99
[2017-07-14 09:12] LABS: FOLATE 10.9 ng/mL
--- NOTE | 2017-07-14 10:37 | MRI ---
PROCEDURE: MRI of the brain dated 07/14/2017 HISTORY: Multiple syncopal episodes COMPARISON: Comparison made with prior CT scan brain 07/12/2017 TECHNIQUE: Multiplanar, multisequence MR images of the brain were obtained without intravenous contrast enhancement. FINDINGS: HEMORRHAGE: No acute parenchymal, subarachnoid or extra-axial hemorrhage. No evidence of hemosiderin deposition identified on gradient echo weighted sequence DWI: No evidence of an acute or early subacute infarction seen on diffusion imaging. BRAIN PARENCHYMA: No mass effect or edema. No atrophy or chronic microvascular ischemic changes. No obvious parenchymal nor extra-axial masses or collections seen on this noncontrast study. . Ventricular and sulcal size are within range of normal this patient's stated age VENTRICLES: No obstructive hydrocephalus. CRANIUM: No acute calvarial abnormalities ORBITS: Orbits and contents unremarkable PARANASAL SINUSES/MASTOIDS: Mild mucosal thickening both maxillary antra. Mildly prominent adenoids. VASCULAR SYSTEM: Visualized major vascular flow voids at skull base patent. OTHER FINDINGS: None. IMPRESSION: No acute intracranial hemorrhage or infarct.
--- NOTE | 2017-07-14 12:34 | CP.PCM.DIS ---
<Luis Malcolm - Last Filed: 07/14/17 16:19> Provider - Provider Date of Admission: 07/13/17 01:07 Attending physician: Maikol Bentley MD Primary care physician: None Consults: Cards: Delphine Neuro: Beck Time Spent in preparation of Discharge (in minutes): 45 Diagnosis - Discharge Diagnosis (1) Syncope Status: Acute (2) Marijuana abuse Status: Acute (3) Obesity (BMI 30.0-34.9) Status: Acute (4) Tobacco abuse Status: Acute (5) Prophylactic measure Status: Acute Hospital Course - Lab Results Lab Results: Most Recent Lab Values WBC 10.5 K/uL (4.8-10.8) 07/14/17 07:39 RBC 4.73 Mil/uL (4.40-5.90) 07/14/17 07:39 Hgb 15.8 g/dL (12.0-18.0) 07/14/17 07:39 Hct 44.8 % (35.0-51.0) 07/14/17 07:39 MCV 94.8 fL (80.0-94.0) H 07/14/17 07:39 MCH 33.5 pg (27.0-31.0) H 07/14/17 07:39 MCHC 35.3 g/dL (33.0-37.0) 07/14/17 07:39 RDW 13.3 % (11.5-14.5) 07/14/17 07:39 Plt Count 271 K/uL (130-400) 07/14/17 07:39 MPV 8.6 fL (7.2-11.7) 07/14/17 07:39 Neut % (Auto) 69.8 % (50.0-75.0) 07/14/17 07:39 Lymph % (Auto) 20.4 % (20.0-40.0) 07/14/17 07:39 Starr % (Auto) 7.9 % (0.0-10.0) 07/14/17 07:39 Eos % (Auto) 0.9 % (0.0-4.0) 07/14/17 07:39 Baso % (Auto) 1.0 % (0.0-2.0) 07/14/17 07:39 Neut # (Auto) 7.3 K/uL (1.8-7.0) H 07/14/17 07:39 Lymph # (Auto) 2.1 K/uL (1.0-4.3) 07/14/17 07:39 Starr # (Auto) 0.8 K/uL (0.0-0.8) 07/14/17 07:39 Eos # (Auto) 0.1 K/uL (0.0-0.7) 07/14/17 07:39 Baso # (Auto) 0.1 K/uL (0.0-0.2) 07/14/17 07:39 Sodium 141 mmol/L (132-148) 07/13/17 07:35 Potassium 3.9 mmol/L (3.6-5.2) 07/13/17 07:35 Chloride 103 mmol/L (98-107) 07/13/17 07:35 Carbon Dioxide 25 mmol/L (22-30) 07/13/17 07:35 Anion Gap 16 (10-20) 07/13/17 07:35 BUN 10 mg/dL (9-20) 07/13/17 07:35 Creatinine 0.8 mg/dL (0.8-1.5) 07/13/17 07:35 Est GFR ( Amer) > 60 07/13/17 07:35 Est GFR (Non-Af Amer) > 60 07/13/17 07:35 POC Glucose (mg/dL) 97 mg/dL (65-110) 07/12/17 18:11 Random Glucose 95 mg/dL (75-110) 07/13/17 07:35 Hemoglobin A1c 5.4 % (4.2-6.5) 07/14/17 07:39 Calcium 8.8 mg/dl (8.6-10.4) 07/13/17 07:35 Phosphorus 3.2 mg/dL (2.5-4.5) 07/13/17 11:41 Magnesium 2.1 mg/dL (1.6-2.3) 07/13/17 11:41 Total Bilirubin 0.9 mg/dL (0.2-1.3) 07/13/17 07:35 AST 25 U/L (17-59) 07/13/17 07:35 ALT 30 U/L (21-72) 07/13/17 07:35 Alkaline Phosphatase 61 U/L (38-126) 07/13/17 07:35 Troponin I < 0.0120 ng/mL (0.00-0.120) 07/13/17 21:56 Total Protein 7.0 g/dL (6.3-8.3) 07/13/17 07:35 Albumin 3.8 g/dL (3.5-5.0) 07/13/17 07:35 Globulin 3.3 gm/dL (2.2-3.9) 07/13/17 07:35 Albumin/Globulin Ratio 1.2 (1.0-2.1) 07/13/17 07:35 Triglycerides 79 mg/dL (0-149) 07/14/17 07:39 Cholesterol 113 mg/dL (0-199) 07/14/17 07:39 LDL Cholesterol Direct 62 mg/dL (0-129) 07/14/17 07:39 HDL Cholesterol 29 mg/dL (30-70) L 07/14/17 07:39 Vitamin B12 471 pg/mL (239-931) 07/14/17 07:39 Folate 10.9 ng/mL 07/14/17 07:39 Free T4 1.03 ng/dL (0.78-2.19) 07/13/17 11:41 TSH 3rd Generation 1.08 mIU/L (0.46-4.68) 07/13/17 11:41 Cortisol AM Sample 19.2 ug/dL (4.46-22.7) 07/14/17 07:39 Urine Color Yellow (YELLOW) 07/12/17 20:38 Urine Clarity Clear (Clear) 07/12/17 20:38 Urine pH 5.0 (5.0-8.0) 07/12/17 20:38 Ur Specific [place] 1.020 (1.003-1.030) 07/12/17 20:38 Urine Protein Negative mg/dL (NEGATIVE) 07/12/17 20:38 Urine Glucose (UA) Normal mg/dL (Normal) 07/12/17 20:38 Urine Ketones Negative mg/dL (NEGATIVE) 07/12/17 20:38 Urine Blood Negative (NEGATIVE) 07/12/17 20:38 Urine Nitrate Negative (NEGATIVE) 07/12/17 20:38 Urine Bilirubin Negative (NEGATIVE) 07/12/17 20:38 Urine Urobilinogen 2.0 mg/dL (0.2-1.0) 07/12/17 20:38 Ur Leukocyte Esterase Neg Erich/uL (Negative) 07/12/17 20:38 Urine WBC (Auto) < 1 /hpf (0-5) 07/12/17 20:38 Urine RBC (Auto) < 1 /hpf (0-3) 07/12/17 20:38 Urine Opiates Screen Negative (NEGATIVE) 07/12/17 20:38 Urine Methadone Screen Negative (NEGATIVE) 07/12/17 20:38 Ur Barbiturates Screen Negative (NEGATIVE) 07/12/17 20:38 Ur Phencyclidine Scrn Negative (NEGATIVE) 07/12/17 20:38 Ur Amphetamines Screen Negative (NEGATIVE) 07/12/17 20:38 U Benzodiazepines Scrn Negative (NEGATIVE) 07/12/17 20:38 U Oth Cocaine Metabols Negative (NEGATIVE) 07/12/17 20:38 U Cannabinoids Screen Positive (NEGATIVE) H 07/12/17 20:38 Alcohol, Quantitative < 10 mg/dl (0-10) 07/13/17 11:41 RPR Nonreactive (NONREACTIVE) 07/13/17 11:41 - Hospital Course Hospital Course: 32 year old male with no reported past medical history presents to the ED after having multiple syncope episodes. Patient had a syncope episode last night while resting at home. Seconds prior to lose consciousness, patient experienced dizziness, cold sweats, chill and blurred vision. Patient was told that he was unconscious for about 5 minutes. There were no seizure like movement , urinary or fecal incontinence, however patient does complaint of a headache after regained consciousness. Patient had another syncope episode this morning while waiting at a bus stop in [facility]. EMS arrived and evaluated the patient then recommended him to go to the ED which he declined at the time because he needs to go to work. Patient reports he first experience these episodes when he was a teenager, but was never evaluated by anyone. Patient denies having fever, shortness of breath, chest pain, nausea, vomiting, diarrhea , or urinary symptoms. Patient was admitted to the hospital. Dr. Akers was consulted for cardiology and he advised for tilt-table, loop recorder and lexiscan. Patient was seen by Neuro Dr. Solares who agreed that this is most likely cardiogenic in nature. Patient was counselled on quitting tobacco as well as marijuana use. Head Ct was unclear wether symmetric band found were blood or not but given the fact that they were symmetric most likely not stroke. Follow up MRI ruled out hemorrhage or infarct. Echo revealed normal EF and normal valves and was otherwise unremarkable. Carotid dopplers did not show any significant stenosis of the arteries. CXR was unremarkable as was EKG. Patient unfortunately had a family emergency and found out that his daughter was in car accident and taken to the hospital. He needed to leave so he signed AMA and we gave the patient information to Dr. Morales office as well as the information to our clinic so he could follow up. Discharge Exam - Head Exam Head Exam: NORMAL INSPECTION - Eye Exam Eye Exam: EOMI, Normal appearance, PERRL Pupil Exam: NORMAL ACCOMODATION, PERRL - Respiratory Exam Respiratory Exam: Clear to PA & Lateral, UNREMARKABLE - Cardiovascular Exam Cardiovascular Exam: REGULAR RHYTHM. absent: Tachycardia - GI/Abdominal Exam GI & Abdominal Exam: Normal Bowel Sounds - Neurological Exam Neurological exam: Alert, CN II-XII Intact, Normal Gait, Oriented x3, Reflexes Normal - Psychiatric Exam Psychiatric exam: Normal Affect, Normal Mood - Skin Skin Exam: Dry, Intact, Normal Color, Warm Discharge Plan - Follow Up Plan Condition: STABLE Disposition: AGAINST MEDICAL ADVICE Additional Instructions: patient was given information for Dr. Morales office as well as to our health clinic and was instructed to call before he left AMA <Bobby Dunne - Last Filed: 07/14/17 19:29> Provider - Provider Date of Admission: 07/13/17 01:07 Attending physician: Maikol Bentley MD Time Spent in preparation of Discharge (in minutes): 40 Hospital Course - Lab Results Lab Results: Most Recent Lab Values WBC 10.5 K/uL (4.8-10.8) 07/14/17 07:39 RBC 4.73 Mil/uL (4.40-5.90) 07/14/17 07:39 Hgb 15.8 g/dL (12.0-18.0) 07/14/17 07:39 Hct 44.8 % (35.0-51.0) 07/14/17 07:39 MCV 94.8 fL (80.0-94.0) H 07/14/17 07:39 MCH 33.5 pg (27.0-31.0) H 07/14/17 07:39 MCHC 35.3 g/dL (33.0-37.0) 07/14/17 07:39 RDW 13.3 % (11.5-14.5) 07/14/17 07:39 Plt Count 271 K/uL (130-400) 07/14/17 07:39 MPV 8.6 fL (7.2-11.7) 07/14/17 07:39 Neut % (Auto) 69.8 % (50.0-75.0) 07/14/17 07:39 Lymph % (Auto) 20.4 % (20.0-40.0) 07/14/17 07:39 Starr % (Auto) 7.9 % (0.0-10.0) 07/14/17 07:39 Eos % (Auto) 0.9 % (0.0-4.0) 07/14/17 07:39 Baso % (Auto) 1.0 % (0.0-2.0) 07/14/17 07:39 Neut # (Auto) 7.3 K/uL (1.8-7.0) H 07/14/17 07:39 Lymph # (Auto) 2.1 K/uL (1.0-4.3) 07/14/17 07:39 Starr # (Auto) 0.8 K/uL (0.0-0.8) 07/14/17 07:39 Eos # (Auto) 0.1 K/uL (0.0-0.7) 07/14/17 07:39 Baso # (Auto) 0.1 K/uL (0.0-0.2) 07/14/17 07:39 Sodium 141 mmol/L (132-148) 07/13/17 07:35 Potassium 3.9 mmol/L (3.6-5.2) 07/13/17 07:35 Chloride 103 mmol/L (98-107) 07/13/17 07:35 Carbon Dioxide 25 mmol/L (22-30) 07/13/17 07:35 Anion Gap 16 (10-20) 07/13/17 07:35 BUN 10 mg/dL (9-20) 07/13/17 07:35 Creatinine 0.8 mg/dL (0.8-1.5) 07/13/17 07:35 Est GFR ( Amer) > 60 07/13/17 07:35 Est GFR (Non-Af Amer) > 60 07/13/17 07:35 POC Glucose (mg/dL) 97 mg/dL (65-110) 07/12/17 18:11 Random Glucose 95 mg/dL (75-110) 07/13/17 07:35 Hemoglobin A1c 5.4 % (4.2-6.5) 07/14/17 07:39 Calcium 8.8 mg/dl (8.6-10.4) 07/13/17 07:35 Phosphorus 3.2 mg/dL (2.5-4.5) 07/13/17 11:41 Magnesium 2.1 mg/dL (1.6-2.3) 07/13/17 11:41 Total Bilirubin 0.9 mg/dL (0.2-1.3) 07/13/17 07:35 AST 25 U/L (17-59) 07/13/17 07:35 ALT 30 U/L (21-72) 07/13/17 07:35 Alkaline Phosphatase 61 U/L (38-126) 07/13/17 07:35 Troponin I < 0.0120 ng/mL (0.00-0.120) 07/13/17 21:56 Total Protein 7.0 g/dL (6.3-8.3) 07/13/17 07:35 Albumin 3.8 g/dL (3.5-5.0) 07/13/17 07:35 Globulin 3.3 gm/dL (2.2-3.9) 07/13/17 07:35 Albumin/Globulin Ratio 1.2 (1.0-2.1) 07/13/17 07:35 Triglycerides 79 mg/dL (0-149) 07/14/17 07:39 Cholesterol 113 mg/dL (0-199) 07/14/17 07:39 LDL Cholesterol Direct 62 mg/dL (0-129) 07/14/17 07:39 HDL Cholesterol 29 mg/dL (30-70) L 07/14/17 07:39 Vitamin B12 471 pg/mL (239-931) 07/14/17 07:39 Folate 10.9 ng/mL 07/14/17 07:39 Free T4 1.03 ng/dL (0.78-2.19) 07/13/17 11:41 TSH 3rd Generation 1.08 mIU/L (0.46-4.68) 07/13/17 11:41 Cortisol AM Sample 19.2 ug/dL (4.46-22.7) 07/14/17 07:39 Urine Color Yellow (YELLOW) 07/12/17 20:38 Urine Clarity Clear (Clear) 07/12/17 20:38 Urine pH 5.0 (5.0-8.0) 07/12/17 20:38 Ur Specific [place] 1.020 (1.003-1.030) 07/12/17 20:38 Urine Protein Negative mg/dL (NEGATIVE) 07/12/17 20:38 Urine Glucose (UA) Normal mg/dL (Normal) 07/12/17 20:38 Urine Ketones Negative mg/dL (NEGATIVE) 07/12/17 20:38 Urine Blood Negative (NEGATIVE) 07/12/17 20:38 Urine Nitrate Negative (NEGATIVE) 07/12/17 20:38 Urine Bilirubin Negative (NEGATIVE) 07/12/17 20:38 Urine Urobilinogen 2.0 mg/dL (0.2-1.0) 07/12/17 20:38 Ur Leukocyte Esterase Neg Erich/uL (Negative) 07/12/17 20:38 Urine WBC (Auto) < 1 /hpf (0-5) 07/12/17 20:38 Urine RBC (Auto) < 1 /hpf (0-3) 07/12/17 20:38 Urine Opiates Screen Negative (NEGATIVE) 07/12/17 20:38 Urine Methadone Screen Negative (NEGATIVE) 07/12/17 20:38 Ur Barbiturates Screen Negative (NEGATIVE) 07/12/17 20:38 Ur Phencyclidine Scrn Negative (NEGATIVE) 07/12/17 20:38 Ur Amphetamines Screen Negative (NEGATIVE) 07/12/17 20:38 U Benzodiazepines Scrn Negative (NEGATIVE) 07/12/17 20:38 U Oth Cocaine Metabols Negative (NEGATIVE) 07/12/17 20:38 U Cannabinoids Screen Positive (NEGATIVE) H 07/12/17 20:38 Alcohol, Quantitative < 10 mg/dl (0-10) 07/13/17 11:41 Whole Blood Lead 5 mcg/dL (<5) H 07/13/17 11:41 RPR Nonreactive (NONREACTIVE) 07/13/17 11:41 Attending/Attestation - Attestation I have personally seen and examined this patient.: Yes I have fully participated in the care of the patient.: Yes I have reviewed all pertinent clinical information, including history, physical exam and plan: Yes Notes (Text): 07/14/17 19:28 I was not able to see this patient before he signed AMA. However, follow up instructions were gone over with resident Dr. Nik Cox. Bobby Dunne D.O.
== END 2017-07-14 13:22 | disposition left against medical advice (07) ==
LOC: C.ER 17:36 → C.9E 07-13 01:07 → C.6T 07-13 01:58
PROVIDERS: ADMIT Internal Medicine; ATTEND Internal Medicine
DX: R55 Syncope and collapse (principal); F12.10 Cannabis abuse, uncomplicated; E66.9 Obesity, unspecified; F17.210 Nicotine dependence, cigarettes, uncomplicated; E87.8 Other disorders of electrolyte and fluid balance, not elsewhere classified; Z68.33 Body mass index [BMI] 33.0-33.9, adult
CPT/HCPCS: 36415; 70450; 70551; 71045; 80053; 80061; 80320; 80324; 80345; 80346; 80349; 80353; 80358; 80361; 81001; 82533; 82607; 82746; 82948; 83036; 83655; 83735; 83992; 84100; 84439; 84443; 84484; 85025; 86592; 93005; 93306; 93880; 95812; 99285; G0378